=== PATIENT | female | born 1955 | race Caucasian/White ===

== ENCOUNTER 2019-09-30 20:41 | Emergency (ER) | payer MEDICARE ==
[~2019-09-30] VITALS: Ht 160 cm; Wt 163.5 kg
--- NOTE | 2019-09-30 21:19 | NUR ---
THIS IS A 63 YO FEMALE COMING IN FOR INCREASE WORK OF BREATHING AND NEED FOR O2 AT HOME, SON FOUND PATIENT TO BE 87% ON RA AT HOME, STATED FEVER OF 101 AT HOME, NO TYLENOL TAKEN. ALSO C/O N/V UNABLE TOTOLERATE FOOD OR FLUIDS X1 DAY. RECENT DX OF UTI, CURRENTLY ON ABX FOR TREATMENT. STATED SOB, BUT STATES "I KIND OF ALWAYS AM BECAUSE OF MY WEIGHT". LUNG SOUNDS AUSCULTATED, BILATERAL BASES HAVE DIMINISHED RHONCHI, UPPER LOBES CLEAR BUT DIMINISHED. ALL MONITORING IN PLACE, SINUS TACHYCARDIC AT 103, VSS, NADN AT THIS TIME. CALL LIGHT IN REACH, ERP TO ROOM FOR EVAL.
--- NOTE | 2019-09-30 21:54 | NUR ---
TASK RN: PT RESTING COMFORTABLY IN [facility] WITH ALL MONITORS ATTACHED. STRAIGHT CATHETER URINE SAMPLE OBTAINED WITH ASSISTANCE FROM LISA Wilkins AT . SAMPLE WALKED TO LAB AT THIS TIME. PT DENIES ANY OTHER NEEDS AT THIS TIME.
[2019-09-30 21:57] LABS: BASOPHILS # (AUTO) 0.02 x10^3/uL (0-0.1); BASOPHILS % (AUTO) 0 % (0-1); EOSINOPHILS # (AUTO) 0.03 x10^3/uL (0-0.4); EOSINOPHILS % (AUTO) 0 % (1-7); LYMPHOCYTES # (AUTO) 1.25 x10^3/uL (1-3.4); LYMPHOCYTES % (AUTO) 17 % (22-44); MD NO; MEAN CORPUSCULAR HEMOGLOBIN 29.7 pg (27.0-34.8); MEAN CORPUSCULAR HGB CONC 32.6 g/dL (32.4-35.8); MEAN PLATELET VOLUME 8.3 fL (7.4-10.4); MONOCYTES # (AUTO) 0.35 x10^3/uL (0.2-0.8); MONOCYTES % (AUTO) 5 % (2-9); NEUTROPHILS # (AUTO) 5.61 x10^3/uL (1.8-6.8); NEUTROPHILS % (AUTO) 77 % (42-75); PLATELET COUNT 160 x10^3/uL (130-400); RED BLOOD COUNT 4.34 x10^6/uL (3.82-5.3)
[2019-09-30 22:06] LABS: MICROSCOPIC AUTO
[2019-09-30 22:10] LABS: ALANINE AMINOTRANSFERASE 35 U/L (12-78); ALBUMIN 3.3 g/dL (3.4-5.0); ANION GAP 5 mmol/L (5-15); CALCIUM 8.7 mg/dL (8.5-10.1); CHLORIDE 105 mmol/L (98-107); CREATININE 1.74 mg/dL (0.55-1.02)
[2019-09-30 22:14] LABS: ALKALINE PHOSPHATASE 62 U/L (45-117); BILIRUBIN,TOTAL 0.5 mg/dL (0.2-1.0); TOTAL PROTEIN 7.3 g/dL (6.4-8.2); TROPONIN I < 0.015 ng/mL (0.000-0.045)
--- NOTE | 2019-09-30 22:47 | NUR ---
TITRATED PATIENT DOWN TO 1.5L NC FROM 3L, SPO2 >90%
[2019-09-30 23:15] VITALS: BP 131/60
--- NOTE | 2019-09-30 23:15 | NUR ---
ERP TO ROOM FOR RECHECK. SPO2 AT 96% ON RA
[2019-09-30] MEDS ORDERED: PROMETHAZINE 25 MG/ML, 1ML ONE (23:25)
[2019-09-30] MEDS ORDERED: PROMETHAZINE 25 MG/ML, 1ML IM ONE (23:30)
--- NOTE | 2019-09-30 23:33 | NUR ---
Patient/Caregiver given discharge instructions and they have confirmed that they understand the instructions. Patient wheeled to discharge, son here with car for safe discharge
== END 2019-09-30 23:35 | disposition home or self-care (01) ==
LOC: ED 22:05
DX: R11.2 Nausea with vomiting, unspecified (principal); R53.1 Weakness; N18.2 Chronic kidney disease, stage 2 (mild); R50.9 Fever, unspecified; R94.31 Abnormal electrocardiogram [ECG] [EKG]; E66.01 Morbid (severe) obesity due to excess calories; J45.909 Unspecified asthma, uncomplicated; Z21 Asymptomatic human immunodeficiency virus [HIV] infection status; Z68.44 Body mass index [BMI] 60.0-69.9, adult
CPT/HCPCS: 36415; 71045; 80053; 81001; 83605; 83880; 84145; 84484; 85025; 87040; 87086; 93005; 96372; 99285; J2550

== ENCOUNTER 2020-08-22 22:04 | Emergency (ER) | payer MEDICARE ==
[~2020-08-22] VITALS: Ht 160 cm; Wt 171.5 kg
--- NOTE | 2020-08-22 22:28 | NUR ---
CC OF X3 SPELLS OF DIZZYNESS TODAY, EACH ONE LAST ABOUT 3-4 MIN AND BLURRING/ PRESSURE WITH VISION IN BOTH EYES. HAS INCREASED SOB. DENIES N/V, CP, CONKLIN, DIFFICULTY WITH SPEECH, AND WEAKNESS. HAS HX OF CHRONIC DIARRHEA AND DM. PT SITTING UP AT SIDE OF BED.
--- NOTE | 2020-08-22 22:49 | NUR ---
ORTHO BP DONE
[2020-08-22 23:12] LABS: BASOPHILS % (AUTO) 1 % (0-1); EOSINOPHILS % (AUTO) 1 % (1-7); LYMPHOCYTES % (AUTO) 22 % (22-44); MEAN CORPUSCULAR HEMOGLOBIN 29.7 pg (27.0-34.8); MEAN CORPUSCULAR HGB CONC 33.3 g/dL (32.4-35.8); MONOCYTES % (AUTO) 8 % (2-9); NEUTROPHILS % (AUTO) 68 % (42-75); PLATELET COUNT 156 x10^3/uL (130-400); RED BLOOD COUNT 4.41 x10^6/uL (3.82-5.3); RED CELL DISTRIBUTION WIDTH 15.6 % (9.6-15.2)
[2020-08-22 23:14] LABS: MD NO
--- NOTE | 2020-08-22 23:14 | NUR ---
PT 83-84% RA, PT STATES SHE HAS APNEA AND WEARS OXYGEN AT [facility]. PT PLACED ON 3 L NC, NOW 96% RA
[2020-08-22 23:20] LABS: ALANINE AMINOTRANSFERASE 39 U/L (12-78); ALBUMIN 3.4 g/dL (3.4-5.0); ANION GAP 7 mmol/L (5-15); CHLORIDE 105 mmol/L (98-107); CREATININE 2.18 mg/dL (0.55-1.02)
[2020-08-22 23:24] LABS: ALKALINE PHOSPHATASE 60 U/L (45-117); BILIRUBIN,TOTAL 0.5 mg/dL (0.2-1.0); TOTAL PROTEIN 7.2 g/dL (6.4-8.2); TROPONIN I < 0.015 ng/mL (0.000-0.045)
[2020-08-22 23:33] VITALS: BP 96/57
--- NOTE | 2020-08-22 23:46 | NUR ---
Covering primary for break, pt air conditioning mechanic industrial christian. Wanting to "sit up with feet on floor", advised against this as pt is here for c/c of dizziness. Pt states "Im sorry but I need to sit like this". VSS.
== END 2020-08-23 00:24 | disposition home or self-care (01) ==
LOC: ED 22:31
DX: R42 Dizziness and giddiness (principal); I12.9 Hypertensive chronic kidney disease with stage 1 through stage 4 chronic kidney disease, or unspecified chronic kidney disease; E11.65 Type 2 diabetes mellitus with hyperglycemia; E11.22 Type 2 diabetes mellitus with diabetic chronic kidney disease; N18.30 Chronic kidney disease, stage 3 unspecified; R00.0 Tachycardia, unspecified; J45.909 Unspecified asthma, uncomplicated; Z21 Asymptomatic human immunodeficiency virus [HIV] infection status
CPT/HCPCS: 36415; 80053; 82962; 84484; 85025; 93005; 99284